=== PATIENT | female | born 1960 | race Caucasian/White ===

== ENCOUNTER → 2017-01-30 | Outpatient (CLI) | payer BC ==
--- NOTE | 2017-02-01 14:19 | DI ---
CT SCAN OF THE LEFT WRIST, 01/30/2017 4:40 PM : Clinical History: Broken wrist. Scans are obtained from the distal third of the radius and ulna to the midshaft of the metacarpal bon es without IV contrast. Sagittal and coronal reformatted images are also generated. There is a comminuted and impacted fracture of the distal radius with intra-articular involvement and dorsal angulation of the distal radial articular surface. The articular surface involvement is appro ximately 20% and there is no " punch" component. The distal radial articular surface is dorsally a ngulated approximately 10 degrees. There is a fracture through the ulnar styloid but it is misshapen. In addition, the distal radius is sclerotic on the dorsal aspect where the fracture line traverses. This patient may have had a previous fracture of the distal radius and ulnar styloid. There is slight widening of the distance between the scaphoid and lunate bones and injury to the scapholunate ligame nt cannot be excluded. The remainder of the carpal bones are normal. There is osteoporosis. READIN. Impacted and dorsally angulated intra-articular fracture of the distal radius. The radial articul ar surface is angulated dorsally 10 degrees. There is loss of length of probably no more than 5 mm. T here is an ulnar styloid fracture. 2. The changes of the distal radius and the ulnar styloid with respect to density suggests this benjamin ent may have had previous injury to the radius and ulna. 3. Injury to the scapholunate ligament is suspected. 4. Severe osteoporosis.
== END ==
LOC: CT 16:20
PROVIDERS: ATTEND Orthopaedic Surgery
DX: S52.572A Other intraarticular fracture of lower end of left radius, initial encounter for closed fracture (principal); W01.0XXA Fall on same level from slipping, tripping and stumbling without subsequent striking against object, initial encounter
CPT/HCPCS: 73200

== ENCOUNTER 2017-02-04 10:21 | Day surgery (SDC) | payer BC ==
[~2017-02-04 10:21] MED LIST: LIDOCAINE W/ SODIUM BICARB 0.5 ML SYR ONE; Lactated Ringers 1,000 ML PRIMARY IV ONE; ceFAZolin Inj 2gm (Premix) 50 ML IV ONE
[2017-02-04 11:23] VITALS: RESP 18
[2017-02-04] MEDS ORDERED: fentaNYL Inj 250 MCG/5 ML VIAL ONE (12:38)
[2017-02-04] MEDS ORDERED: Sodium Chloride 0.9% vial 10 ML ONE (13:13)
[2017-02-04] MEDS ORDERED: BACITRACIN 50,000 UNIT VIAL IRRIG ONE (13:13)
[2017-02-04] MEDS ORDERED: LIDOCAINE 2%/ EPI 1:200,000 - 20 ML VIAL ONE (13:41)
[2017-02-04] MEDS ORDERED: MIDAZOLAM 5 MG/1 ML ONE (13:41)
[2017-02-04] MEDS ORDERED: BUPIVACAINE 0.5% W/ EPI - 10 ML VIAL ONE (13:42)
--- NOTE | 2017-02-04 15:36 | CRNA.PROCE ---
Nerve Block Documentation - - Safety Measures: Time Out Taken, Site Verified - - Type of Nerve Block Used: Left Infraclavicular Block Position for Nerve Block: Supine Moniters Used During Block: EKG, SPO2, NIBP Oxygen Sumpplented: Yes Sedation Used - Enter Amount in Comment Field: Midazolam (mg): Yes (3mg iv preop ), Fentanyl (mcg): Yes (100 mcg iv preop) Skin Prep Used: ChloroPrep Technique: Nerve Stimulator Nerve Block Needle Used: 80 mm ProBlk II Stimulation Hz: 1.0 Stimulation Staring mA: 1.2 Stimulation Ending mA: 0.5 Local Anesthetic - Enter Amt in Comment Field: 0.5 % Bupivicaine with Epinephrine 1:200,000 (mL): Yes (15ml), 2 % Xylocaine with Epinephrine 1:200, 000 (mL): Yes (15ml)
[2017-02-04] MEDS ORDERED: Lactated Ringers 1,000 ML PRIMARY IV ONE (15:41)
[2017-02-04] MEDS ORDERED: NORMAL SALINE 10 ML SYRINGE FLUSH IVP PRN (16:06)
[2017-02-04] MEDS ORDERED: ONDANSETRON 4 MG/2 ML VIAL IVP PRN (16:06)
[2017-02-04] MEDS ORDERED: IBUPROFEN 400 MG TABLET PO PRN (16:06)
[2017-02-04] MEDS ORDERED: diphenhydrAMINE 25 MG CAPSULE PO PRN (16:06)
[2017-02-04] MEDS ORDERED: Prochlorperazine Tab 10 MG TAB PO PRN (16:06)
[2017-02-04] MEDS ORDERED: MAG HYDROX/AL HYDROX/SIMETH 30 ML SUSP PO PRN (16:06)
[2017-02-04] MEDS ORDERED: Ondansetron ODT Tab 8 MG TAB PO PRN (16:06)
[2017-02-04] MEDS ORDERED: MORPHINE SULFATE 2 MG/1 ML IVP PRN (16:06)
[2017-02-04] MEDS ORDERED: CALCIUM CARBONATE 500 MG (TUMS) CHEWABLE TABLET PO PRN (16:06)
[2017-02-04] MEDS ORDERED: BISACODYL 10 MG SUPPOSITORY RECTAL PRN (16:06)
[2017-02-04] MEDS ORDERED: ACETAMINOPHEN 325 MG TABLET PO PRN (16:06)
[2017-02-04] MEDS ORDERED: BISACODYL 5 MG TABLET PO PRN (16:06)
[2017-02-04] MEDS ORDERED: HYDROcodone-APAP 7.5 MG-325 MG TABLET PO PRN (16:06)
[2017-02-04] MEDS ORDERED: Lactated Ringers 1,000 ML PRIMARY IV SCH (16:15)
[2017-02-04 18:15] VITALS: TEMP 98.8
== END 2017-02-04 17:55 | disposition home or self-care (01) ==
LOC: SDSC 10:21
PROVIDERS: ATTEND Orthopaedic Surgery
DX: S62.102A Fracture of unspecified carpal bone, left wrist, initial encounter for closed fracture (principal)
CPT/HCPCS: 25609; 76000; 87641; A4216; J0690; J2704; J3010; J2250; J7120